=== PATIENT | female | born 1980 | race African-American/Black ===

== ENCOUNTER 2017-01-16 14:40 | Emergency (ER) | payer OTHER ==
[2017-01-16] MEDS ORDERED: NS 1,000 ML IV ONE ×3 (15:12→21:21)
--- NOTE | 2017-01-16 15:15 | CPEKG ---
Heart Rate: 54 RR Interval: 1111 P-R Interval: 180 QRSD Interval: 62 QT Interval: 416 QTC Interval: 395 P [place]: -14 QRS [place]: 64 T Wave [place]: 48 EKG Severity - NORMAL ECG - EKG Impression: SINUS RHYTHM Electronically Signed By: Dany Mccollum 16-Jan-2017 21:03:46
--- NOTE | 2017-01-16 15:43 | EDPHY ---
H & P Stated Complaint: felt dizzy at work and fell/no inj from fall/shaky/chills Source: Patient Exam Limitations: No limitations - Personal History LMP (Females 10-55): Now Current Tetanus/Diphtheria Vaccine: Yes - Medical/Surgical History Hx Asthma: No Hx Chronic Respiratory Disease: No Hx Diabetes: No Hx Cardiac Disease: No Hx Renal Disease: No Hx Cirrhosis: No Hx Alcoholism: No Hx HIV/AIDS: No Hx Splenectomy or Spleen Trauma: No Other PMH: denies - Social History Smoking Status: Never smoked HPI/ROS: CHIEF COMPLAINT: Dizziness, loss of conscious, fall HISTORY OF PRESENT ILLNESS: Patient complains of an episode of dizziness and brief loss of consciousness at work around 1:00 p.m.. She was sitting at her desk when this happened. She felt some fullness in the base of the back of her head. No chest pain. She did feel some palpitations at that time that resolved. No shortness of breath at this time but some minimally earlier. Still feels somewhat lightheaded. No nausea. No vomiting. No abdominal urinary complaints. Symptoms have begun to improve at time of examination. No predictable modifying factors. No other associated complaints. No history of venous thrombolic event. No history of coronary artery disease or intracranial abnormality. REVIEW OF SYSTEMS: Ten systems reviewed and are negative unless otherwise noted in the HPI PERTINENT MEDICAL HISTORY: Hypertension, controlled with lifestyle changes. EXAMINATION General Appearance: Alert, no distress Head: normocephalic, atraumatic Eyes: Pupils equal and round, no conjunctival pallor or injection. Horizontal nystagmus. No vertical nystagmus. ENT, Mouth: Mucous membranes moist. Uvula midline. No erythema or edema. Neck: Normal inspection, supple, non-tender Respiratory: Lungs are clear to auscultation. No wheezing, rhonchi or crackles. Cardiovascular: Regular rate and rhythm. No murmur. Pulses intact distally. Gastrointestinal: Abdomen is soft and nontender Back: non-tender, no bony abnormalities Neurological: GCS 15. A&O, nonfocal, normal gait. No pronator drift. No dysmetria. NIH stroke scale 0 Skin: Warm and dry, no rash Extremities: Nontender, no pedal edema Psychiatric: Mood and affect normal DIFFERENTIAL DIAGNOSES: Including but not limited to near syncope, dehydration, vertigo, electrolyte disturbance, vasovagal syndrome, CVA, MDM: 3:20 p.m. Dizziness with 1 episode of syncope with mild pressure in the occiput. No chest pain at this time. She does describe a vertiginous scenario earlier today. Vital signs were well within normal limits at this time. 4:00 p.m. Laboratory studies of thus far unremarkable. She remains awake, alert and in no acute distress. No vomiting. No chest pain. 4:30 p.m. Notified by radiologist Dr. Kapadia. No acute findings on CT scan of the head. 4:45 p.m. Patient is comfortable in no acute distress. I have reviewed her laboratory studies with her. Troponin is within normal limits but mildly elevated within that range at 0.14. I discussed this with Dr. Steinberg. She recommends the patient be observed with a repeat troponin at 4:00 hours post 1st troponin. I discussed this with the patient she is comfortable this plan. At this time Dr. Steinberg will assume care of the patient. Please see her note for final disposition. SUPERVISION: Shared visit with Dr. Steinberg (Moe Orozco) Constitutional: Initial Vital Signs Temperature (C) 36.8 C 01/16/17 14:44 Heart Rate 54 L 01/16/17 14:44 Respiratory Rate 22 H 01/16/17 14:44 Blood Pressure 168/89 H 01/16/17 14:44 O2 Sat (%) 100 01/16/17 14:44 O2 Delivery Mode Room Air Allergies/Adverse Reactions: No Known Allergies Allergy (Unverified 01/16/17 14:44) Home Medications: Medication Instructions Recorded NK [No Known Home Meds] 01/16/17 Medical Decision Making - Diagnostics Imaging Results: Imaging Impressions Chest X-Ray 01/16/17 15:13 Impression: Negative. Recommend routine PA and lateral chest when the patient is clinically able. Head CT 01/16/17 15:21 Impression: Essentially normal. I telephoned results to Moe Orozco at 1633 hours. ED Course/Re-evaluation: This is a 36-year-old female who was seen by physician assistant inventory manager Moe Orozco. I assumed care of the patient at 5:00 p.m. while awaiting a 2nd troponin. Repeat troponin is negative. On my re-evaluation the patient continues to complain of a posterior headache. She is concerned regarding the dizziness and being off balance which occurred previously. On neurologic exam [id number] is normal, heel-jamison is normal. Motor strength 5/5 throughout. Sensation intact throughout. Gait is normal. Patient had a head CT performed which was negative for any acute findings. Is possible the patient's symptoms are secondary to a migraine type headache. Patient received Toradol as well as Decadron. She was feeling better after this treatment. She was discharged with instructions to follow up with Neurology. I do not believe the patient is requires any further evaluation at the current time. Her headache is improved. (Monie Steinberg) Differential Diagnosis: After history was obtained, and the physical exam performed, a differential for headache was considered including, but not limited to, subarachnoid hemorrhage, migraine headache, tension headache and infectious causes such as meningitis, sinusitis, encephalitis. Differential diagnosis of the patient's dizziness was considered including but not limited to peripheral and central causes of vertigo, cardiac arrhythmias, cardiac ischemia, electrolyte disturbances, neurologic causes, orthostatic causes including dehydration, and blood loss. (Monie Steinberg) - Data Points Laboratory Results: Laboratory Results 01/16/17 15:36 01/16/17 15:36 01/16/17 01/16/17 01/16/17 19:30 15:36 15:36 WBC RBC Hgb Hct MCV MCH MCHC RDW Plt Count MPV Neut % (Auto) Lymph % (Auto) Foard % (Auto) Eos % (Auto) Baso % (Auto) Nucleat RBC Rel Count Absolute Neuts (auto) Absolute Lymphs (auto) Absolute Monos (auto) Absolute Eos (auto) Absolute Basos (auto) Absolute Nucleated RBC Immature Gran % Immature Gran # Sodium 142 mEq/L mEq/L (134-144) Potassium 4.1 mEq/L mEq/L (3.5-5.2) Chloride 106 mEq/L mEq/L (97-110) Carbon Dioxide 21 mEq/l L mEq/l (22-31) Anion Gap 15 mEq/L mEq/L (8-16) BUN 5 mg/dL L mg/dL (7-23) Creatinine 0.7 mg/dL mg/dL (0.6-1.0) Estimated GFR > 60 Glucose 73 mg/dL mg/dL (70-100) Calcium 9.7 mg/dL mg/dL (8.5-10.4) Troponin I < 0.012 ng/mL ng/mL 0.014 ng/mL ng/mL (0-0.034) (0-0.034) Lipase 97.0 IU/L IU/L (23-300) Beta HCG, Qual NEGATIVE 01/16/17 15:36 WBC 7.48 10^3/uL 10^3/uL (3.80-9.50) RBC 4.76 10^6/uL 10^6/uL (4.18-5.33) Hgb 10.3 g/dL L g/dL (12.6-16.3) Hct 33.7 % L % (38.0-47.0) MCV 70.8 fL L fL (81.5-99.8) MCH 21.6 pg L pg (27.9-34.1) MCHC 30.6 g/dL L g/dL (32.4-36.7) RDW 19.5 % H % (11.5-15.2) Plt Count 360 10^3/uL 10^3/uL (150-400) MPV 10.0 fL fL (8.7-11.7) Neut % (Auto) 52.7 % % (39.3-74.2) Lymph % (Auto) 38.8 % % (15.0-45.0) Foard % (Auto) 6.1 % % (4.5-13.0) Eos % (Auto) 0.4 % L % (0.6-7.6) Baso % (Auto) 1.7 % % (0.3-1.7) Nucleat RBC Rel Count 0.0 % % (0.0-0.2) Absolute Neuts (auto) 3.94 10^3/uL 10^3/uL (1.70-6.50) Absolute Lymphs (auto) 2.90 10^3/uL 10^3/uL (1.00-3.00) Absolute Monos (auto) 0.46 10^3/uL 10^3/uL (0.30-0.80) Absolute Eos (auto) 0.03 10^3/uL 10^3/uL (0.03-0.40) Absolute Basos (auto) 0.13 10^3/uL H 10^3/uL (0.02-0.10) Absolute Nucleated RBC 0.00 10^3/uL 10^3/uL (0-0.01) Immature Gran % 0.3 % % (0.0-1.1) Immature Gran # 0.02 10^3/uL 10^3/uL (0.00-0.10) Sodium Potassium Chloride Carbon Dioxide Anion Gap BUN Creatinine Estimated GFR Glucose Calcium Troponin I Lipase Beta HCG, Qual Medications Given: Discontinued Medications Dexamethasone (Decadron Injection) 10 mg IVP EDNOW ONE Stop: 01/16/17 21:21 Last Admin: 01/16/17 21:33 Dose: 10 mg Sodium Chloride (Ns) 1,000 mls @ 0 mls/hr IV ONCE ONE PRN Reason: Wide Open Stop: 01/16/17 15:13 Last Admin: 01/16/17 15:41 Dose: 1,000 mls Sodium Chloride (Ns) 1,000 mls @ 0 mls/hr IV ONCE ONE PRN Reason: Wide Open Stop: 01/16/17 21:22 Last Admin: 01/16/17 21:32 Dose: 1,000 mls Ibuprofen (Motrin) 600 mg PO EDNOW ONE Stop: 01/16/17 19:49 Last Admin: 01/16/17 19:49 Dose: 600 mg Ketorolac Tromethamine (Toradol) 15 mg IVP EDNOW ONE Stop: 01/16/17 21:21 Last Admin: 01/16/17 21:33 Dose: 15 mg Departure - Departure Disposition: Home, Routine, Self-Care Clinical Impression: Dizziness Syncope Qualifiers: Syncope type: unspecified Qualified Code(s): R55 - Syncope and collapse Headache Qualifiers: Headache type: unspecified Headache chronicity pattern: acute headache Intractability: not intractable Qualified Code(s): R51 - Headache Condition: Good Instructions: Syncope (ED), Acute Headache (ED), Lightheadedness (ED) Additional Instructions: Follow-up with primary care physician. Return here for any chest pain at any time. Referrals: [facility] [Other] - As per Instructions Kadeem Sumner DO [Doctor of Osteopathy] - As per Instructions Stand Alone Forms: Work Excuse
[2017-01-16 16:01] LABS: % IMMATURE GRANULYOCYTES 0.3 % (0.0-1.1); ABSOLUTE IMMATURE GRANULOCYTES 0.02 10^3/uL (0.00-0.10); ADD DIFF? NO; ADD MORPH? NO; ADD SCAN? NO; ATYPICAL LYMPHOCYTE FLAG 0 (0-99); FRAGMENT RBC FLAG 40 (0-99); HEMATOCRIT 33.7 % (38.0-47.0); HEMOGLOBIN 10.3 g/dL (12.6-16.3); LEFT SHIFT FLG 0 (0-99); LIPEMIA HEMOLYSIS FLAG 80 (0-99); MEAN CELL HEMOGLOBIN 21.6 pg (27.9-34.1); MEAN CELL HEMOGLOBIN CONCENTR. 30.6 g/dL (32.4-36.7); MEAN CELL VOLUME 70.8 fL (81.5-99.8); PLATELET CLUMPS FLAG 0 (0-99); PLATELET COUNT 360 10^3/uL (150-400); RED BLOOD CELL COUNT 4.76 10^6/uL (4.18-5.33); RED CELL DISTRIBUTION WIDTH 19.5 % (11.5-15.2)
[2017-01-16 16:15] LABS: ANION GAP 15 mEq/L (8-16); CALCIUM 9.7 mg/dL (8.5-10.4); CARBON DIOXIDE 21 mEq/l (22-31); CHLORIDE 106 mEq/L (97-110); CREATININE 0.7 mg/dL (0.6-1.0); GLOMERULAR FILTRATION RATE > 60; GLUCOSE 73 mg/dL (70-100); POTASSIUM 4.1 mEq/L (3.5-5.2); SODIUM 142 mEq/L (134-144)
[2017-01-16 16:26] LABS: TROPONIN I 0.014 ng/mL (0-0.034)
[2017-01-16 18:27] VITALS: RESP 16
[2017-01-16] MEDS ORDERED: IBUPROFEN 600 MG TAB PO ONE ×2 (19:40→19:48)
[2017-01-16] MEDS ORDERED: DEXAMETHASONE 10 MG/ML VIAL IVP ONE (21:20)
[2017-01-16] MEDS ORDERED: KETOROLAC 15 MG/1 ML SDV IVP ONE (21:20)
[2017-01-16] MEDS ORDERED: KETOROLAC 30 MG/1 ML SDV IVP ONE (21:21)
[2017-01-16 22:19] VITALS: BP 152/84; PULSE 66; TEMP 98.1; O2SAT 99
== END 2017-01-16 22:19 | disposition home or self-care (01) ==
DX: R55 Syncope and collapse (principal); R42 Dizziness and giddiness; R51 Headache
CPT/HCPCS: 96374; J1885